=== PATIENT | female | born 1985 | race Caucasian/White ===

== ENCOUNTER 2019-03-29 09:01 | Emergency (ER) | payer MEDICAID ==
[~2019-03-29] VITALS: Ht 165.1 cm; Wt 78.9 kg
[2019-03-29 09:05] VITALS: BP 154/108
--- NOTE | 2019-03-29 09:13 | NUR ---
Patient ambulated to bed 8. RN evaluating patient at bedside.
--- NOTE | 2019-03-29 09:15 | NUR ---
PT WAS REFERED TO ED BY OBGYN FOR ELEVATED BP IN OFFICE (REPORTED 180/103). BP AT THIS TIME IS 163/96. PT ALSO REPORTS INTERMITENT LOWER ABD CRAMPING X3DAYS. DENIES N/V/D/FEVER, VAGINAL BLEEDING, CP, SOB OR HX OF HIGH BP. SKIN IS PINK/WARM/DRY. PT IS ALERT AND CONVERSING APPROPRIATLY. HR EVEN AND REGULAR.
--- NOTE | 2019-03-29 09:19 | NUR ---
LAB AT BEDSIDE
--- NOTE | 2019-03-29 09:20 | NUR ---
URINE COLLECTED AND SENT TO LAB
[2019-03-29 09:42] LABS: BASOPHILS # (AUTO) 0.1 K/uL (0.00-0.22); BASOPHILS % (AUTO) 1.1 % (0.0-2.0); EOSINOPHILS # (AUTO) 0.1 K/uL (0-0.4); EOSINOPHILS % (AUTO) 0.9 % (0.0-4.0); HEMATOCRIT 42.5 % (36-48); HEMOGLOBIN 14.3 g/dL (12.0-16.0); LYMPHOCYTES # (AUTO) 1.9 K/uL (2.5-16.5); LYMPHOCYTES % (AUTO) 20.8 % (20.5-51.1); MEAN CORPUSCULAR HEMOGLOBIN 29 pg (27-31); MEAN CORPUSCULAR HGB CONC 34 g/dL (33-37); MEAN CORPUSCULAR VOLUME 85.6 fL (80-94); MONOCYTES # (AUTO) 0.5 K/uL (0.8-1.0); MONOCYTES % (AUTO) 5.8 % (1.7-9.3); NEUTROPHILS # (AUTO) 6.4 K/uL (1.8-7.7); NEUTROPHILS % (AUTO) 71.4 % (42.2-75.2); PLATELET COUNT (AUTO) 261 K/uL (140-450); RED BLOOD CELL COUNT(AUTO) 4.97 MIL/uL (4.20-5.40); RED CELL DISTRIBUTION WIDTH 12.9 % (11.6-13.7); WHITE BLOOD COUNT (AUTO) 8.9 K/uL (4.8-10.8)
--- NOTE | 2019-03-29 09:47 | NUR ---
US exam completed at bedside by tech.
[2019-03-29 09:50] LABS: ANION GAP 12.8 (8-16); CARBON DIOXIDE 25.3 mmol/L (21-32); CREATININE 0.7 mg/dL (0.6-1.3); POTASSIUM 4.1 mmol/L (3.5-5.1)
[2019-03-29 09:55] LABS: ALBUMIN 3.7 g/dL (3.4-5.0); TOTAL BILIRUBIN 0.6 mg/dL (0.0-1.0)
[2019-03-29 10:16] LABS: APPEARANCE,URINE CLEAR (CLEAR); BILIRUBIN,URINE NEGATIVE (NEGATIVE); BLOOD, URINE NEGATIVE (NEGATIVE); COLOR,URINE YELLOW (YELLOW); LEUKOCYTE ESTERASE ,URINE NEGATIVE (NEGATIVE); NITRITE, URINE NEGATIVE (NEGATIVE); PH,URINE 6.5 (5.0-9.0); UGLUCOSE 3+ (NEGATIVE)
[2019-03-29 11:07] LABS: RBC,URINE NONE SEEN /HPF (0-5); WBC,URINE 0-5 /HPF (0-5)
--- NOTE | 2019-03-29 11:23 | NUR ---
Dr. Serna evaluating patient at bedside.
[2019-03-29 11:36] VITALS: BP 149/88
--- NOTE | 2019-03-29 11:37 | NUR ---
Written and verbal after care instructions given and explained. Patient alert, oriented and verbalized understanding of instructions. Ambulatory with steady gait. All questions addressed prior to discharge. ID band removed. Patient advised to follow up with OBGYN. PT DENIES QUESTIONS/CONCERNS. PT STATES SHE IS NOT FEELING ABDOMINAL PAIN AT THIS TIME.
== END 2019-03-29 11:35 | disposition home or self-care (01) ==
LOC: MED 09:01
DX: O26.891 Other specified pregnancy related conditions, first trimester (principal); O16.1 Unspecified maternal hypertension, first trimester; R10.30 Lower abdominal pain, unspecified; Z3A.01 Less than 8 weeks gestation of pregnancy
CPT/HCPCS: 36415; 76817; 80053; 81001; 81025; 84702; 85025; 85610; 85730; 86900; 86901; 99284; Q0092